=== PATIENT | male | born 1970 | race Caucasian/White ===

== ENCOUNTER → 2017-01-29 | Outpatient (CLI) | payer OTHER ==
--- NOTE | 2017-01-29 15:32 | KCIC ---
Left hip, two views Indication: Left hip pain. Time of exam 3:07 p.m. Femoral acetabular alignment is normal. The joint space is well maintained. The femoral head and neck are intact. No fractures are seen. The left sided rami are intact. Impression: No acute bony abnormality is detected. Electronically signed by: Abhinav Kebede MD (January 29, 2017 15:30:43)
--- NOTE | 2017-01-29 15:32 | KCIC ---
Right toes, three views Indication: Right great toe pain. Time of exam 3:11 p.m. Three views of the right toes were obtained. There are degenerative changes at the 1st MTP joint with joint space narrowing and marginal spurring. The alignment is normal. The phalanges are intact. No fractures are seen. 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 No acute bony abnormality is detected. Electronically signed by: Abhinav Kebede MD (January 29, 2017 15:31:39)
== END | disposition home or self-care (01) ==
LOC: KCIC 14:49
PROVIDERS: ATTEND Family Medicine
DX: M25.552 Pain in left hip (principal); M79.674 Pain in right toe(s)
CPT/HCPCS: 73502; 73660